=== PATIENT | male | born 1960 | race African-American/Black ===

== ENCOUNTER 2020-05-20 06:53 | Emergency (ER) | payer OTHER, MEDICAID ==
[~2020-05-20] VITALS: Ht 175.3 cm; Wt 79.0 kg
[2020-05-20] MEDS ORDERED: MORPHINE SULFATE 4 MG/ML CPJ (NOT FOR IM USE) IV STA (07:36)
[2020-05-20] MEDS ORDERED: SODIUM CHLORIDE 0.9% 1,000 ML IV ONE (07:36)
[2020-05-20] MEDS ORDERED: ONDANSETRON HCL 4MG/2ML INJ IV STA (07:36)
[2020-05-20 08:17] LABS: BASOPHILS % 0.4 % (0.0-2.0); EOSINOPHILS % 0.2 % (0.0-5.0); HEMATOCRIT. 45.4 % (42.0-52.0); HEMOGLOBIN. 15.7 g/dL (14.0-18.0); LYMPHOCYTES % 8.6 % (20.0-50.0); MEAN CORPUSCULAR HEMOGLOBIN 29.3 pg (28.0-32.0); MEAN CORPUSCULAR VOLUME 84.7 fL (80.0-94.0); MONOCYTES % 3.5 % (2.0-8.0); NEUTROPHILS % 87.3 % (40.0-76.0); RED BLOOD CELL COUNT 5.37 mill/uL (4.7-6.1); RED CELL DISTRIBUTION WIDTH 14.1 % (11.6-14.6)
[2020-05-20 08:19] LABS: CHLORIDE 109 mEq/L (98-107)
[2020-05-20 08:29] LABS: INR 1.2; PROTHROMBIN TIME 12.3 sec (9.6-11.0)
[2020-05-20] MEDS ORDERED: KETOROLAC 30MG/ML VIAL IV ONE (08:45)
[2020-05-20 08:58] LABS: MEAN PLATELET VOLUME 11.5 fl (7.4-10.4); PLATELET 162 x1000/uL (130-400)
[2020-05-20 09:02] LABS: CLARITY URINE CLEAR (CLEAR); COLOR URINE YELLOW (YELLOW); KETONES URINE 4+ (NEGATIVE); LEUKOCYTE ESTERASE URINE TRACE (NEGATIVE); NITRITE URINE NEGATIVE (NEGATIVE); OCCULT BLOOD URINE NEGATIVE (NEGATIVE); PROTEIN URINE 1+ (NEGATIVE)
[2020-05-20] MEDS ORDERED: IOHEXOL-300 100 ML BOTTLE ONE (09:21)
[2020-05-20] MEDS ORDERED: METRONIDAZOLE 500 MG PREMIX 100 ML IV ONE (10:15)
[2020-05-20] MEDS ORDERED: CEFTRIAXONE 1 G PREMIX 50 ML IV ONE (10:15)
[2020-05-20] MEDS ORDERED: ACETAMINOPHEN 325MG TABLET PO PRN ×2 (12:00)
[2020-05-20] MEDS ORDERED: MAGNESIUM/ALUMINUM HYDROXIDE/SIMETHICONE 30ML UDC PO PRN (12:00)
[2020-05-20] MEDS ORDERED: ZOLPIDEM TARTRATE 5MG TABLET PO PRN (12:00)
[2020-05-20] MEDS ORDERED: LORAZEPAM 0.5MG TABLET PO PRN (12:00)
[2020-05-20] MEDS ORDERED: DOCUSATE SODIUM 100MG CAPSULE PO PRN (12:00)
[2020-05-20] MEDS ORDERED: NITROGLYCERIN 0.4MG TABLET SL SL PRN (12:00)
[2020-05-20] MEDS ORDERED: ONDANSETRON HCL 4MG/2ML INJ IV PRN (12:00)
[2020-05-20] MEDS ORDERED: CLONIDINE 0.1MG TABLET PO PRN (12:00)
[2020-05-20] MEDS ORDERED: IPRATROPIUM/ALBUTEROL 0.5-3(2.5)MG/3ML NEB ORI PRN (12:00)
[2020-05-20] MEDS ORDERED: GUAIFENESIN 200MG/10ML SUGAR FREE UDC PO PRN (12:00)
[2020-05-20] MEDS ORDERED: TRAMADOL 50MG TABLET PO PRN (12:00)
[2020-05-20] MEDS ORDERED: KETOROLAC 15MG/ML VIAL IV PRN (12:31)
[2020-05-20] MEDS ORDERED: PIPERACILLIN/TAZ 3.375G PREMIX 50 ML IV NR (12:32)
[2020-05-20 12:50] VITALS: BP 135/70
[2020-05-20] MEDS ORDERED: HYDRALAZINE HCL 50MG TABLET PO SCH (14:00)
[2020-05-20] MEDS ORDERED: ENOXAPARIN 40MG/0.4ML SYR SUBCUT SCH (14:00)
[2020-05-20] MEDS ORDERED: PIPERACILLIN/TAZOBACTAM 3.375 G in DEXT 5% WATER 100 ML IV SCH (18:00)
[2020-05-20] MEDS ORDERED: FAMOTIDINE 20MG TABLET PO SCH (21:00)
[2020-05-20] MEDS ORDERED: ASCORBIC ACID 500 MG TABLET PO SCH (21:00)
[2020-05-21] MEDS ORDERED: ZINC SULFATE 220 MG ( 50 ) CAPSULE PO SCH (09:00)
== END 2020-05-20 12:30 | disposition left against medical advice (07) ==
LOC: EDSEX 06:53 → ER 06:53 → CANBEDREQ 12:51
DX: K52.9 Noninfective gastroenteritis and colitis, unspecified (principal); R11.2 Nausea with vomiting, unspecified
CPT/HCPCS: 36415; 74177; 80053; 81003; 83036; 83690; 85025; 85610; 87040; 96361; 96365; 96368; 96375; 99285; J0696; J1885; J2270; J2405; J3490; J7030; Q9967